=== PATIENT | female | born 1940 | race Caucasian/White ===

== ENCOUNTER 2016-09-30 14:09 | Emergency (ER) | payer MEDICARE, OTHER ==
[2016-09-30 15:12] LABS: #Basophils 0.1 thou/uL (0.0-0.2); #Eosinphils 0.1 thou/uL (0.0-0.7); #Lymphocytes 1.7 thou/uL (1.20-3.40); #Monocytes 0.8 thou/uL (0.11-0.59); #Neutrophils 4.2 thou/uL (1.40-6.50); %Basophils 1.5 % (0.0-1.0); %Eosinophils 1.1 % (0.0-10.0); %Monocytes 12.2 % (0.0-10.0); Hematocrit 43.9 % (36.0-47.0); Red Blood Cell (RBC) Count 4.91 mill/uL (4.20-5.40); White Blood Cell (WBC) Count 6.9 thou/uL (4.8-10.8)
[2016-09-30 15:26] LABS: ALT (SGPT) 22 U/L (0-55); AST (SGOT) 22 U/L (5-34); Alkaline Phosphatase 75 U/L (40-150); Anion Gap 16 mmol/L (10-20); BUN (Urea Nitrogen) 18 mg/dL (9.8-20.1); Bilirubin, Total 0.3 mg/dL (0.2-1.2); Calc. Creatinine Clearance 0 mL/min (70-130); Calcium 9.7 mg/dL (7.8-10.44); Carbon Dioxide 25 mmol/L (23-31); Chloride 103 mmol/L (98-107); Estimated GFR-MDRD 47; Globulin 3.2 g/dL (2.4-3.5); Protein, Total 7.5 g/dL (5.8-8.1)
[2016-09-30 15:31] LABS: Bilirubin Negative (Negative); Blood, Urine Negative (Negative); Glucose, Urine (Dipstick) Negative (Negative); Ketone, Urine Negative (Negative); Nitrite Negative (Negative); Protein, Urine (Dipstick) Negative (Neg-Trace); Urobilinogen 0.2 mg/dL (0.2-1.0)
[2016-09-30] MEDS ORDERED: Acetaminophen 325 MG TAB ONE (15:52)
--- NOTE | 2016-09-30 15:55 | CT ---
CT OF THE BRAIN WITHOUT CONTRAST: DATE: 09/30/16. FINDINGS: A noncontrast CT shows normal-size ventricles for age with no shift. No intracranial bleeding or ex traaxial hematoma was seen. There is no sign of acute stroke, mass, or edema. There is soft tissue swelling in the scalp in the high left parietal region. No fractures are seen. The sphenoid sinus is clear. IMPRESSION: No acute intracranial findings. POS: HOME
[2016-09-30] MEDS ORDERED: Adacel (T-DAP) 0.5 ML VIAL ONE (16:52)
[2016-09-30] MEDS ORDERED: Lidocaine 1% 20 ML MDV ONE (16:54)
== END 2016-09-30 17:42 | disposition home or self-care (01) ==
LOC: BURERS 14:09
DX: S06.2X0A Diffuse traumatic brain injury without loss of consciousness, initial encounter (principal); S01.01XA Laceration without foreign body of scalp, initial encounter; I48.91 Unspecified atrial fibrillation; E03.9 Hypothyroidism, unspecified; I10 Essential (primary) hypertension; I49.9 Cardiac arrhythmia, unspecified; Z88.0 Allergy status to penicillin; Z79.899 Other long term (current) drug therapy; Z79.82 Long term (current) use of aspirin; W17.89XA Other fall from one level to another, initial encounter
CPT/HCPCS: 12001; 36415; 70450; 80053; 81003; 85025; 90471; 90715; 93005; J2001

== ENCOUNTER 2020-09-14 17:19 | Emergency (ER) | payer MEDICARE, OTHER ==
[2020-09-14] MEDS ORDERED: Lidocaine 1% w/Epinephrine 1:100K 20 ML VIAL ONE (18:03)
--- NOTE | 2020-09-14 21:19 | CT ---
CT OF THE BRAIN WITHOUT CONTRAST: 09/14/[address] was done and compared with the 09/30/16 study. The ventricles are normal in size with no shift. No intracranial bleeding or extra-axial hematoma was seen. There is no sign of acute strok e, mass or edema. An area of soft tissue swelling is seen in the high right posterior scalp with skin zaki in place over it. The underlying bone appears intact with no sign of skull fracture. The vis ible paranasal sinuses are clear. IMPRESSION: No acute intracranial findings. Preliminary report called to Antonino in ER at [id number] on 09/14/20. POS: HOME
== END 2020-09-14 19:14 | disposition home or self-care (01) ==
LOC: BURERS 17:19
DX: S01.01XA Laceration without foreign body of scalp, initial encounter (principal); I48.91 Unspecified atrial fibrillation; E03.9 Hypothyroidism, unspecified; I10 Essential (primary) hypertension; Z79.899 Other long term (current) drug therapy; W01.10XA Fall on same level from slipping, tripping and stumbling with subsequent striking against unspecified object, initial encounter
CPT/HCPCS: 12002; 70450